=== PATIENT | male | born 1945 | race Caucasian/White ===

== ENCOUNTER 2018-07-07 19:06 | Inpatient (IN) | payer MEDICARE, MEDICAID ==
[~2018-07-07] VITALS: Ht 172.7 cm; Wt 51.3 kg
[2018-07-07] MEDS ORDERED: ATEN50TA PO (22:10)
[2018-07-07] MEDS ORDERED: IOHEXOL 100 ML ONE (22:25)
[2018-07-07] MEDS ORDERED: SOD CHLORIDE 0.9% 100 ML ONE (22:25)
[2018-07-07] MEDS ORDERED: morphine 4 MG/ML VIAL IV STA (23:37)
[2018-07-07] MEDS ORDERED: ONDANSETRON 4 MG INJ IV STA (23:37)
[2018-07-08] VITALS (9 sets, daily range): BP systolic 139–184; BP diastolic 83–96; PULSE 65–90; RESP 18–20; Ht 172.7 cm; Wt 51.3 kg
[2018-07-08] MEDS ORDERED: ASPIRIN 325 MG TAB PO ONE
--- NOTE | 2018-07-08 01:49 | ERD ---
ER Documentation Chief Complaint Chief Complaint dizziness/hearing, vision problem x 3 days HPI This is a 72-year-old male who presents for evaluation of intermittent blurry vision, as well as dizziness, described as vertiginous over the last 3 days. His symptoms are worsened by movement, he has not had a fever, he has no history of trauma. He has not had any dysarthria dysphasia, there are no relieving factors. The patient has no history of stroke. ROS All systems reviewed and are negative except as per history of present illness. Medications Home Meds Reported Medications Atenolol* (Atenolol*) 50 Mg Tablet, 50 MG PO BID, #60 TAB 07/07/18 Allergies Allergies: Coded Allergies: No Known Drug Allergies (Verified Allergy, Unknown, 07/07/18) PMhx/Soc History of Surgery: Yes (L Inguinal Hernia Repair) Anesthesia Reaction: No Hx Neurological Disorder: No Hx Respiratory Disorders: No Hx Cardiac Disorders: Yes (HTN) Hx Psychiatric Problems: No Hx Miscellaneous Medical Probl: No Hx Alcohol Use: Yes (Social) Hx Substance Use: Yes (Marijuana smoking) Hx Tobacco Use: Yes (3 sticks/day) Smoking Status: Current every day smoker Physical Exam Vitals Vital Signs Date Temp Pulse Resp B/P (MAP) Pulse Ox O2 O2 Flow FiO2 Time Delivery Rate 07/07/18 97.3 72 18 148/81 99 Room Air 21:00 (103) 07/07/18 97.2 87 18 156/89 97 19:18 (111) Physical Exam Const: No acute distress Head: Atraumatic Eyes: Normal Conjunctiva ENT: Normal External Ears, Nose and Mouth. Neck: Full range of motion. No meningismus. Resp: Clear to auscultation bilaterally Cardio: Regular rate and rhythm, no murmurs Abd: Soft, non tender, non distended. Normal bowel sounds Skin: No petechiae or rashes Back: No midline or flank tenderness Ext: No cyanosis, or edema Neur: Awake and alert, cranial nerves II through XII intact, normal [id number], normal rapid hand movement Psych: Normal Mood and Affect Result Diagram: 07/08/18 0533 07/08/18 0533 Results 24 hrs Laboratory Tests Test 07/07/18 21:00 07/07/18 21:01 Prothrombin Time 12.3 Sec Prothrombin Time Ratio 1.0 INR International Normalized Ratio 0.90 Activated Partial Thromboplast Time 30.5 Sec Sodium Level 144 mmol/L Potassium Level 3.2 mmol/L Chloride Level 108 mmol/L Carbon Dioxide Level 30 mmol/L Anion Gap 6 Blood Urea Nitrogen 15 mg/dl Creatinine 0.72 mg/dl Est Glomerular Filtrat Rate mL/min > 60 mL/min Glucose Level 112 mg/dl Calcium Level 8.9 mg/dl Total Bilirubin 0.3 mg/dl Direct Bilirubin 0.00 mg/dl Indirect Bilirubin 0.3 mg/dl Aspartate Amino Transf (AST/SGOT) 23 IU/L Alanine Aminotransferase (ALT/SGPT) 20 IU/L Alkaline Phosphatase 79 IU/L Troponin I < 0.012 ng/ml Total Protein 6.6 g/dl Albumin 3.8 g/dl Globulin 2.80 g/dl Albumin/Globulin Ratio 1.35 White Blood Count 5.2 10^3/ul Red Blood Count 4.68 10^6/ul Hemoglobin 15.1 g/dl Hematocrit 45.0 % Mean Corpuscular Volume 96.2 fl Mean Corpuscular Hemoglobin 32.3 pg Mean Corpuscular Hemoglobin Concent 33.6 g/dl Red Cell Distribution Width 12.8 % Platelet Count 168 10^3/UL Mean Platelet Volume 9.6 fl Immature Granulocytes % 0.200 % Neutrophils % 62.0 % Lymphocytes % 24.4 % Monocytes % 10.5 % Eosinophils % 2.3 % Basophils % 0.6 % Nucleated Red Blood Cells % 0.0 /100WBC Immature Granulocytes # 0.010 10^3/ul Neutrophils # 3.2 10^3/ul Lymphocytes # 1.3 10^3/ul Monocytes # 0.5 10^3/ul Eosinophils # 0.1 10^3/ul Basophils # 0.0 10^3/ul Nucleated Red Blood Cells # 0.0 10^3/ul Current Medications Medications Dose Sig/Jigar Start Time Status Last (Trade) Ordered Route PRN Stop Time Admin Dose Reason Admin IV Flush 10 ml STK-MED 07/07/18 DC 07/07/18 (NS 10 ml) ONCE .ROUTE 22:25 07/07/18 22:51 22:26 Sodium 100 ml @ ud STK-MED 07/07/18 DC 07/07/18 Chloride ONCE .ROUTE 22:25 07/07/18 22:51 22:26 Iohexol 100 ml @ ud STK-MED 07/07/18 DC 07/07/18 ONCE .ROUTE 22:25 07/07/18 22:51 22:26 Procedures/MDM 72-year-old male presents for evaluation of dizziness, symptoms have been ongoing for 3 days now. The patient had no neuro deficits on exam, however given the combination of vision changes associated with vertigo, I was concerned about a central cause for his dizziness. Thus a CT Noncon was ordered which showed acute and subacute strokes bilaterally. Symptoms have been ongoing for 3 days, and been waxing and waning, thus patient would not be a candidate for TPA based on timing, CT brain was followed up with a CTA, which showed severe stenosis of the cervical arteries, patient will require admission, for further work-up. He was given aspirin in the ED. Critical Care Time: 35 minutes Treatments/Evaluations: Close monitoring and treatment of unstable vital signs, cardiorespiratory, and neurologic status, while maintaining tight balance of fluid, respiratory, and cardiac interventions. This time includes discussing the case with the patient and the patient's family. This time does not include all procedures stated elsewhere in this record. This time also includes reviewing old records, labs and radiological studies. This time includes examining and re- examining the patient. Additionally, this time also includes arranging care with admitting and consulting physicians. EKG: Rate/Rhythm: Normal Sinus Rhythm QRS, ST, T-waves: No changes consistent w/ acute ischemia Impression: No evidence of ischemia or arrhythmia Departure Diagnosis: Primary Impression: CVA (cerebral vascular accident) CVA mechanism: unspecified Qualified Codes: I63.9 - Cerebral infarction, unspecified Condition: Serious ANGEL LUIS CLEARY MD July 08, 2018 01:49
[2018-07-08] MEDS ORDERED: ALBUTEROL/IPRATROPIUM (NEB) 3 ML AMP HHN PRN (02:30)
[2018-07-08] MEDS ORDERED: NACL 0.9% 3 ML SYG IV SCH (02:30)
[2018-07-08] MEDS ORDERED: ONDANSETRON 4 MG INJ IV PRN (02:30)
[2018-07-08] MEDS ORDERED: morphine 4 MG/ML VIAL IV ONE (03:44)
[2018-07-08] MEDS: POTASSIUM CHLORIDE 50 ML IVPB SCH ×2 (04:48→05:30)
[2018-07-08] MEDS: hydrALAzine 20 MG INJ IV PRN (04:48)
[2018-07-08] MEDS: POTASSIUM CHLORIDE 30 MEQ in SOD CHLORIDE 0.9% 1,000 ML IV ONE ×2 (06:00→09:57)
--- NOTE | 2018-07-08 07:02 | HP ---
Date/Time of Note Date/Time of Note DATE: 07/08/18 TIME: 06:59 Assessment/Plan VTE Prophylaxis Pharmacological prophylaxis: heparin Lines/Catheters IV C[facility]ter Type [facility]from [facility]): Saline Lock Assessment/Plan Assessment/Plan 1. Acute on chronic CVA -CT head shows acute and old infarcts. CT angiogram of the head and neck shows severe stenosis of the right ICA and right vertebral artery. -Neurology consult -Aspirin, statin -Check A1c, fasting lipid in a.m. -PT and speech/swallow eval -MRI of the brain 2. Hypertension: Symptom onset 3 days ago and as such no need for permissive hypertension. Continue home meds. Adjust as needed Result Diagram: 07/08/18 0533 07/07/18 2100 Results 24hrs Laboratory Tests Test 07/07/18 21:00 07/07/18 21:01 07/08/18 05:33 Prothrombin Time 12.3 Prothrombin Time Ratio 1.0 INR International Normalized Ratio 0.90 Activated Partial Thromboplast Time 30.5 Sodium Level 144 Potassium Level 3.2 L Chloride Level 108 Carbon Dioxide Level 30 Anion Gap 6 Blood Urea Nitrogen 15 Creatinine 0.72 Est Glomerular Filtrat Rate mL/min > 60 Glucose Level 112 Calcium Level 8.9 Total Bilirubin 0.3 Direct Bilirubin 0.00 Indirect Bilirubin 0.3 Aspartate Amino Transf (AST/SGOT) 23 Alanine Aminotransferase (ALT/SGPT) 20 Alkaline Phosphatase 79 Troponin I < 0.012 Pending Total Protein 6.6 Albumin 3.8 Globulin 2.80 Albumin/Globulin Ratio 1.35 White Blood Count 5.2 5.5 Red Blood Count 4.68 L 5.07 Hemoglobin 15.1 16.4 Hematocrit 45.0 48.3 Mean Corpuscular Volume 96.2 95.3 Mean Corpuscular Hemoglobin 32.3 32.3 Mean Corpuscular Hemoglobin Concent 33.6 34.0 Red Cell Distribution Width 12.8 12.8 Platelet Count 168 172 Mean Platelet Volume 9.6 9.8 Immature Granulocytes % 0.200 0.400 Neutrophils % 62.0 48.8 Lymphocytes % 24.4 35.0 Monocytes % 10.5 10.8 Eosinophils % 2.3 4.3 Basophils % 0.6 0.7 Nucleated Red Blood Cells % 0.0 0.0 Immature Granulocytes # 0.010 0.020 Neutrophils # 3.2 2.7 Lymphocytes # 1.3 1.9 Monocytes # 0.5 0.6 Eosinophils # 0.1 0.2 Basophils # 0.0 0.0 Nucleated Red Blood Cells # 0.0 0.0 Creatine Kinase 49 Creatine Kinase Index Pending Creatinine Kinase MB (Mass) Pending HPI/ROS Admit Date/Time Admit Date/Time July 07, 2018 at 22:39 Hx of Present Illness This is a 9-year-old male with a history of hypertension who presented to the ER complaining of weakness, visual disturbance, forgetfulness and slurred speech for the past 3 days. In the ER, he is found to have acute and old infarct on head CT. CT angiogram shows severe stenosis of right ICA and the right vertebral artery as well as mild on the left ICA and left vertebral artery. Initial blood pressure 156/89. Labs shows a potassium of 3.2 otherwise basic labs within acceptable range. PMH/Family/Social Past Medical History Past Surgical Hx: other (see hpi) Family History Significant Family History: no pertinent family hx Social History Alcohol Use: none Smoking Status: Never smoker Drug Use: none Exam Exam Constitutional: other (No acute distress) Head: normocephalic, atraumatic Eyes: EOMI, PERRL Respiratory: other (no wheezing or Rhonchi) Cardiovascular: normal pulse Gastrointestinal: soft, non-tender Extremities: normal pulses Medications Current Medications IV Flush (NS 3 ml) 3 ml PER PROTOCOL IV ; Start 07/08/18 at 02:30 Ondansetron HCl (Zofran Inj) 4 mg Q6H PRN IV NAUSEA/VOMITING; Start 07/08/18 at 02:30 Aspirin (Aspirin) 81 mg DAILY PO ; Start 07/08/18 at 09:00 Acetaminophen (Tylenol Tab) 650 mg Q6H PRN PO .PAIN 1-3 OR TEMP; Start 07/08/18 at 02:30 Heparin Sodium (Porcine) (Heparin (5000 Units/1ml)) 5,000 unit Q12 SC ; Start 07/08/18 at 09:00 Albuterol/ Ipratropium (Duoneb) 3 ml Q2H RESP THERAPY PRN HHN SHORTNESS OF BREATH; Start 07/08/18 at 02:30 Atenolol (Tenormin) 50 mg BID PO ; Start 07/08/18 at 09:00 Atorvastatin Calcium (Lipitor) 40 mg QHS PO ; Start 07/08/18 at 21:00 Hydralazine HCl (Apresoline) 10 mg Q6H PRN IV ELEVATED SYSTOLIC BP Last administered on 07/08/18at 04:48; Admin Dose 10 MG; Start 07/08/18 at 04:30 Potassium Chloride 30 meq/ Sodium Chloride 1,015 ml @ 333.3 mls/ hr Q3H3M ONCE IV ; Start 07/08/18 at 06:00; Stop 07/08/18 at 09:02 Coded Allergies: No Known Drug Allergies (Verified Allergy, Unknown, 07/07/18) Social History Smoking Status: Current every day smoker Exam/Review of Systems Vital Signs Vitals Vital Signs Date Temp Pulse Resp B/P (MAP) Pulse Ox O2 O2 Flow FiO2 Time Delivery Rate 07/08/18 65 04:16 07/08/18 97.8 18 184/96 95 Room Air 04:14 (125) Intake and Output 07/07/18 07/07/18 07/08/18 1515:00 23:00 07:00 IntakeIntake Total 200 ml OutputOutput Total 300 ml BalanceBalance -100 ml SAI CARLISLE MD July 08, 2018 07:02
[2018-07-08] MEDS: ATENOLOL 50 MG TAB PO SCH ×2 (09:56→22:12)
[2018-07-08] MEDS: ASPIRIN 81 MG TAB PO SCH (09:56)
[2018-07-08] MEDS: HEPARIN 5,000 UNIT/1 ML VIAL SC SCH ×2 (10:00→22:52)
[2018-07-08] MEDS: ACETAMINOPHEN 325 MG TAB PO PRN ×2 (10:20→16:36)
--- NOTE | 2018-07-08 12:14 | PN ---
Date/Time of Note Date/Time of Note DATE: 07/08/18 TIME: 12:07 Assessment/Plan VTE Prophylaxis Risk score (from Ns)>0 risk: 3 SCD applied (from Ns): Yes Pharmacological prophylaxis: heparin Lines/Catheters IV [facility] Saline Lock Assessment/Plan Hospital Course 72-year-old male who had presented to the emergency room with dizziness and vision problems for the last 3 days, he was worked up with code stroke was found to have the followin. Acute on chronic multiple CVA seen on CT of the brain involving bilateral occipital lobes and chronic strokes in bilateral cerebellar lobes and frontal and temporal regions. 2. Carotid artery disease -Neck CTA showed severe focal narrowing right proximal cervical ICA as well as narrowing in the intracranial right vertebral artery. 3. Dyslipidemia with hypertriglyceridemia 4. Chronic hypertension -We will titrate meds for optimal control. Patient is out of window for permissive hypertension. Plan: Continue telemetry monitoring for arrhythmias, follow-up 2D echo study with bubble study Await neurology review and recommendations Continue high-dose statin Vascular surgery for carotid artery stenosis Physical therapy evaluation Further interventions per clinical course. Result Diagram: 07/08/18 0533 07/08/18 0533 Results 24hrs Laboratory Tests Test 07/07/18 21:00 07/07/18 21:01 07/08/18 05:33 Prothrombin Time 12.3 Prothrombin Time Ratio 1.0 INR International Normalized Ratio 0.90 Activated Partial Thromboplast Time 30.5 Sodium Level 144 145 H Potassium Level 3.2 L 3.5 Chloride Level 108 109 Carbon Dioxide Level 30 27 Anion Gap 6 9 Blood Urea Nitrogen 15 13 Creatinine 0.72 0.62 Est Glomerular Filtrat Rate mL/min > 60 > 60 Glucose Level 112 73 Calcium Level 8.9 9.1 Total Bilirubin 0.3 0.5 Direct Bilirubin 0.00 0.00 Indirect Bilirubin 0.3 0.5 Aspartate Amino Transf (AST/SGOT) 23 32 Alanine Aminotransferase (ALT/SGPT) 20 17 Alkaline Phosphatase 79 72 Troponin I < 0.012 < 0.012 Total Protein 6.6 6.7 Albumin 3.8 4.1 Globulin 2.80 2.60 Albumin/Globulin Ratio 1.35 1.57 White Blood Count 5.2 5.5 Red Blood Count 4.68 L 5.07 Hemoglobin 15.1 16.4 Hematocrit 45.0 48.3 Mean Corpuscular Volume 96.2 95.3 Mean Corpuscular Hemoglobin 32.3 32.3 Mean Corpuscular Hemoglobin Concent 33.6 34.0 Red Cell Distribution Width 12.8 12.8 Platelet Count 168 172 Mean Platelet Volume 9.6 9.8 Immature Granulocytes % 0.200 0.400 Neutrophils % 62.0 48.8 Lymphocytes % 24.4 35.0 Monocytes % 10.5 10.8 Eosinophils % 2.3 4.3 Basophils % 0.6 0.7 Nucleated Red Blood Cells % 0.0 0.0 Immature Granulocytes # 0.010 0.020 Neutrophils # 3.2 2.7 Lymphocytes # 1.3 1.9 Monocytes # 0.5 0.6 Eosinophils # 0.1 0.2 Basophils # 0.0 0.0 Nucleated Red Blood Cells # 0.0 0.0 Hemoglobin A1c 5.3 Magnesium Level 1.7 Creatine Kinase 49 Creatine Kinase Index 2.9 Creatinine Kinase MB (Mass) 1.42 Triglycerides Level 200 H Cholesterol Level 205 H LDL Cholesterol, Calculated 124 HDL Cholesterol 41 Cholesterol/HDL Ratio 5.0 Exam/Review of Systems Exam Vitals Vital Signs Date Temp Pulse Resp B/P (MAP) Pulse Ox O2 O2 Flow FiO2 Time Delivery Rate 07/08/18 98.8 18 143/83 96 Room Air 11:36 (103) 07/08/18 87 09:41 Intake and Output 07/07/18 07/07/18 07/08/18 1515:00 23:00 07:00 IntakeIntake Total 200 ml OutputOutput Total 300 ml BalanceBalance -100 ml Results Results 24hrs Laboratory Tests Test 07/07/18 21:00 07/07/18 21:01 07/08/18 05:33 Prothrombin Time 12.3 Prothrombin Time Ratio 1.0 INR International Normalized Ratio 0.90 Activated Partial Thromboplast Time 30.5 Sodium Level 144 145 H Potassium Level 3.2 L 3.5 Chloride Level 108 109 Carbon Dioxide Level 30 27 Anion Gap 6 9 Blood Urea Nitrogen 15 13 Creatinine 0.72 0.62 Est Glomerular Filtrat Rate mL/min > 60 > 60 Glucose Level 112 73 Calcium Level 8.9 9.1 Total Bilirubin 0.3 0.5 Direct Bilirubin 0.00 0.00 Indirect Bilirubin 0.3 0.5 Aspartate Amino Transf (AST/SGOT) 23 32 Alanine Aminotransferase (ALT/SGPT) 20 17 Alkaline Phosphatase 79 72 Troponin I < 0.012 < 0.012 Total Protein 6.6 6.7 Albumin 3.8 4.1 Globulin 2.80 2.60 Albumin/Globulin Ratio 1.35 1.57 White Blood Count 5.2 5.5 Red Blood Count 4.68 L 5.07 Hemoglobin 15.1 16.4 Hematocrit 45.0 48.3 Mean Corpuscular Volume 96.2 95.3 Mean Corpuscular Hemoglobin 32.3 32.3 Mean Corpuscular Hemoglobin Concent 33.6 34.0 Red Cell Distribution Width 12.8 12.8 Platelet Count 168 172 Mean Platelet Volume 9.6 9.8 Immature Granulocytes % 0.200 0.400 Neutrophils % 62.0 48.8 Lymphocytes % 24.4 35.0 Monocytes % 10.5 10.8 Eosinophils % 2.3 4.3 Basophils % 0.6 0.7 Nucleated Red Blood Cells % 0.0 0.0 Immature Granulocytes # 0.010 0.020 Neutrophils # 3.2 2.7 Lymphocytes # 1.3 1.9 Monocytes # 0.5 0.6 Eosinophils # 0.1 0.2 Basophils # 0.0 0.0 Nucleated Red Blood Cells # 0.0 0.0 Hemoglobin A1c 5.3 Magnesium Level 1.7 Creatine Kinase 49 Creatine Kinase Index 2.9 Creatinine Kinase MB (Mass) 1.42 Triglycerides Level 200 H Cholesterol Level 205 H LDL Cholesterol, Calculated 124 HDL Cholesterol 41 Cholesterol/HDL Ratio 5.0 Medications Medication Current Medications IV Flush (NS 3 ml) 3 ml PER PROTOCOL IV ; Start 07/08/18 at 02:30 Ondansetron HCl (Zofran Inj) 4 mg Q6H PRN IV NAUSEA/VOMITING; Start 07/08/18 at 02:30 Aspirin (Aspirin) 81 mg DAILY PO Last administered on 07/08/18at 09:56; Admin Dose 81 MG; Start 07/08/18 at 09:00 Acetaminophen (Tylenol Tab) 650 mg Q6H PRN PO .PAIN 1-3 OR TEMP Last admin istered on 07/08/18at 10:20; Admin Dose 650 MG; Start 07/08/18 at 02:30 Heparin Sodium (Porcine) (Heparin (5000 Units/1ml)) 5,000 unit Q12 SC Last administered on 07/08/18at 10:00; Admin Dose 5,000 UNIT; Start 07/08/18 at 09:00 Albuterol/ Ipratropium (Duoneb) 3 ml Q2H RESP THERAPY PRN HHN SHORTNESS OF BREATH; Start 07/08/18 at 02:30 Atenolol (Tenormin) 50 mg BID PO Last administered on 07/08/18at 09:56; Admin Dose 50 MG; Start 07/08/18 at 09:00 Atorvastatin Calcium (Lipitor) 40 mg QHS PO ; Start 07/08/18 at 21:00 Hydralazine HCl (Apresoline) 10 mg Q6H PRN IV ELEVATED SYSTOLIC BP Last administered on 07/08/18at 04:48; Admin Dose 10 MG; Start 07/08/18 at 04:30 SUSANNAH LEACH July 08, 2018 12:14
--- NOTE | 2018-07-08 16:53 | CONS ---
Assessment/Plan Assessment/Plan Hospital Course 72 yo M with hx of HTN who presents for evaluation of weakness, vision changes, dysarthria and other sx. His HCT was notable for multiple infarcts of indeterminate age.. for which neurology is consulted. CTA H/N is most notable for severe focal stenosis of the R proximal cervical ICA and R vertebral artery Echo is unrevealing. LDL 124 P: Await MRI brain for further characterization ASA/Lipitor for secondary stroke prevention Add ESR, RPR, UDS Cont BP and other medical management per primary PT/OT/ST as necessary Will follow clinically, to recommend neurologic studies, as necessary Consultation Date/Type/Reason Admit Date/Time July 07, 2018 at 22:39 Type of Consult Neurology Requesting Provider: SUSANNAH LEACH Date/Time of Note DATE: 07/08/18 TIME: 16:53 Hx of Present Illness 72 yo M with hx of HTN who presented to the ED with complaints of weakness, blurred vision, dysarthria and forgetfulness x 3 days. History was obtained from pt and chart review. He currently has complaints of headache and dizziness. It is additionally elsewhere noted: Hx of Present Illness This is a 72-year-old male with a history of hypertension who presented to the E R complaining of weakness, visual disturbance, forgetfulness and slurred speech for the past 3 days. In the ER, he is found to have acute and old infarct on head CT. CT angiogram shows severe stenosis of right ICA and the right vertebral artery as well as mild on the left ICA and left vertebral artery. Initial blood pressure 156/89. Labs shows a potassium of 3.2 otherwise basic labs within acceptable range. negative unless noted otherwise in HPI Exam/Review of Systems Exam Vitals Vital Signs Date Temp Pulse Resp B/P (MAP) Pulse Ox O2 O2 Flow FiO2 Time Delivery Rate 07/08/18 67 16:30 07/08/18 154/87 16:30 (109) 07/08/18 98.3 18 93 Room Air 15:56 Intake and Output 07/07/18 07/07/18 07/08/18 1515:00 23:00 07:00 IntakeIntake Total 200 ml OutputOutput Total 300 ml BalanceBalance -100 ml Exam PE: Gen Appearance: No Apparent Distress HEENT: Normocephalic Cardiovascular: Regular rate Abdomen: Soft Extremities: Dry NE: The patient was alert and oriented.. Language was normal. Fund of knowledge was normal. Pupils were equal and reactive to light. There was no afferent pupillary defect. Visual wang were normal. Funduscopic examination was limited. Extra-ocular movements were full. Ptosis was absent. There was no nystagmus. Facial sensation was normal. Face was symmetric with normal strength. Hearing was intact. Palate movements were normal. Neck strength was normal. There was normal tongue bulk and speed of movement. Tone was normal. Muscle bulk was normal. I did not see fasciculations. Arms and legs were strong. Vibration sensation was normal. Temperature and pinprick sensation was normal. Rapid alternating movements were normal. There was no dysmetria. There was no intention tremor. Gait was unsteady. Arm and leg reflexes were 2+ and symmetric. Smith's sign was absent. Plantar responses were flexor. Results Result Diagram: 07/08/18 0533 07/08/18 0533 Results 24hrs Laboratory Tests Test 07/07/18 21:00 07/07/18 21:01 07/08/18 05:33 07/08/18 11:17 Prothrombin Time 12.3 Prothrombin Time Ratio 1.0 INR International 0.90 Normalized Ratio Activated 30.5 Partial Thromboplast Time Sodium Level 144 145 H Potassium Level 3.2 L 3.5 Chloride Level 108 109 Carbon Dioxide Level 30 27 Anion Gap 6 9 Blood Urea Nitrogen 15 13 Creatinine 0.72 0.62 Est Glomerular Filtrat > 60 > 60 Rate mL/min Glucose Level 112 73 Calcium Level 8.9 9.1 Total Bilirubin 0.3 0.5 Direct Bilirubin 0.00 0.00 Indirect Bilirubin 0.3 0.5 Aspartate Amino 23 32 Transf (AST/SGOT) Alanine 20 17 Aminotransferase (ALT/SG PT) Alkaline Phosphatase 79 72 Troponin I < 0.012 < 0.012 < 0.012 Total Protein 6.6 6.7 Albumin 3.8 4.1 Globulin 2.80 2.60 Albumin/Globulin Ratio 1.35 1.57 White Blood Count 5.2 5.5 Red Blood Count 4.68 L 5.07 Hemoglobin 15.1 16.4 Hematocrit 45.0 48.3 Mean Corpuscular Volume 96.2 95.3 Mean Corpuscular 32.3 32.3 Hemoglobin Mean Corpuscular 33.6 34.0 Hemoglobin Concent Red Cell Distribution 12.8 12.8 Width Platelet Count 168 172 Mean Platelet Volume 9.6 9.8 Immature Granulocytes % 0.200 0.400 Neutrophils % 62.0 48.8 Lymphocytes % 24.4 35.0 Monocytes % 10.5 10.8 Eosinophils % 2.3 4.3 Basophils % 0.6 0.7 Nucleated Red Blood 0.0 0.0 Cells % Immature Granulocytes # 0.010 0.020 Neutrophils # 3.2 2.7 Lymphocytes # 1.3 1.9 Monocytes # 0.5 0.6 Eosinophils # 0.1 0.2 Basophils # 0.0 0.0 Nucleated Red Blood 0.0 0.0 Cells # Hemoglobin A1c 5.3 Magnesium Level 1.7 Creatine Kinase 49 38 Creatine Kinase Index 2.9 3.3 Creatinine Kinase MB 1.42 1.25 (Mass) Triglycerides Level 200 H Cholesterol Level 205 H LDL Cholesterol, 124 Calculated HDL Cholesterol 41 Cholesterol/HDL Ratio 5.0 Medications Medication Current Medications IV Flush (NS 3 ml) 3 ml PER PROTOCOL IV ; Start 07/08/18 at 02:30 Ondansetron HCl (Zofran Inj) 4 mg Q6H PRN IV NAUSEA/VOMITING; Start 07/08/18 at 02:30 Aspirin (Aspirin) 81 mg DAILY PO Last administered on 07/08/18 09:56; Admin Dose 81 MG; Start 07/08/18 at 09:00 Acetaminophen (Tylenol Tab) 650 mg Q6H PRN PO .PAIN 1-3 OR TEMP Last adm inistered on 07/08/18at 16:36; Admin Dose 650 MG; Start 07/08/18 at 02:30 Heparin Sodium (Porcine) (Heparin (5000 Units/1ml)) 5,000 unit Q12 SC Last administered on 07/08/18at 10:00; Admin Dose 5,000 UNIT; Start 07/08/18 at 09:00 Albuterol/ Ipratropium (Duoneb) 3 ml Q2H RESP THERAPY PRN HHN SHORTNESS OF BREATH; Start 07/08/18 at 02:30 Atenolol (Tenormin) 50 mg BID PO Last administered on 07/08/18 09:56; Admin Dose 50 MG; Start 07/08/18 at 09:00 Hydralazine HCl (Apresoline) 10 mg Q6H PRN IV ELEVATED SYSTOLIC BP Last administered on 07/08/18 04:48; Admin Dose 10 MG; Start 07/08/18 at 04:30 Atorvastatin Calcium (Lipitor) 80 mg QHS PO ; Start 07/08/18 at 21:00 Past Medical History reviewed Home Meds Reported Medications Atenolol* (Atenolol*) 50 Mg Tablet, 50 MG PO BID, #60 TAB 07/07/18 Medications Current Medications IV Flush (NS 3 ml) 3 ml PER PROTOCOL IV ; Start 07/08/18 at 02:30 Ondansetron HCl (Zofran Inj) 4 mg Q6H PRN IV NAUSEA/VOMITING; Start 07/08/18 at 02:30 Aspirin (Aspirin) 81 mg DAILY PO Last administered on 07/08/18at 09:56; Admin Dose 81 MG; Start 07/08/18 at 09:00 Acetaminophen (Tylenol Tab) 650 mg Q6H PRN PO .PAIN 1-3 OR TEMP Last administered on 07/08/18 16:36; Admin Dose 650 MG; Start 07/08/18 at 02:30 Heparin Sodium (Porcine) (Heparin (5000 Units/1ml)) 5,000 unit Q12 SC Last administered on 07/08/18at 10:00; Admin Dose 5,000 UNIT; Start 07/08/18 at 09:00 Albuterol/ Ipratropium (Duoneb) 3 ml Q2H RESP THERAPY PRN HHN SHORTNESS OF BREATH; Start 07/08/18 at 02:30 Atenolol (Tenormin) 50 mg BID PO Last administered on 07/08/18at 09:56; Admin Dose 50 MG; Start 07/08/18 at 09:00 Hydralazine HCl (Apresoline) 10 mg Q6H PRN IV ELEVATED SYSTOLIC BP Last administered on 07/08/18at 04:48; Admin Dose 10 MG; Start 07/08/18 at 04:30 Atorvastatin Calcium (Lipitor) 80 mg QHS PO ; Start 07/08/18 at 21:00 Allergies: Coded Allergies: No Known Drug Allergies (Verified Allergy, Unknown, 07/07/18) Past Surgical History reviewed Social History reviewed Smoking Status: Current every day smoker HUDSON LOVE NP July 08, 2018 16:53
--- NOTE | 2018-07-08 19:03 | RADRPT ---
Echocardiogram Report Patient Name: ILYA BARLOWPatient ID: [id number] : 1945 (72y 11m)Study Date: 07/08/2018 1:16:34 PM Gender: MAccession #: [id number] Tech: Chayo Spain RDCS Location: 525 Ref.Physician: SUSANNAH LEACH Height(Cm): BSA: Weight(Kg): Quality: AdequateAccount #: Procedures: Echocardiographic Report: Transthoracic echocardiogram with complete 2D, M-Mode, and doppler examination. Indications: Acute Cerebrovascular Accident. Measurements: 2D/M Mode Doppler Measurement Value Normal Range Measurement Value Normal Range LVIDd 2D 3.2 [ 4.2 - 5.8 ] cm AV Peak Dax 1.2 [ 100.0 - 170.0 ] cm/sec LVIDs 2D 2.5 [ 2.5 - 4.0 ] cm AV Peak PG 6.0 [ 2.0 - 9.0 ] mmHg LVPWd 2D 1.1 [ 0.6 - 1.0 ] cm LVOT Peak Dax 1.1 [ 70.0 - 110.0 ] cm/sec IVSd 2D 1.1 [ 0.6 - 1.0 ] cm LVOT Peak PG 5.0 [ 2.0 - 6.0 ] mmHg AoR Diam 2D 3.3 [ 2.6 - 3.4 ] cm MV E Peak Dax 0.5 [ 60.0 - 130.0 ] cm/sec EDV 2D 41.6 [ 62.0 - 150.0 ] ml MV A Peak Dax 0.7 [ 100.0 - 120.0 ] cm/sec ESV 2D 21.2 [ 21.0 - 61.0 ] ml MV E/A 0.7 [ 0.8 - 1.5 ] ratio EF 2D 49.0 [ 52.0 - 72.0 ] percent MV Decel Time 194 [ 104 - 258 ] msec LA Dimen 2D 2.8 [ 3.0 - 4.0 ] cm Lat E` Dax 0.1 [ 10.0 - 15.0 ] cm/sec Lateral E/E` 6.2 [ 1.0 - 2.0 ] ratio MV E/A 0.7 [ 0.8 - 1.5 ] ratio TR Peak Dax 2.5 [ 100.0 - 280.0 ] cm/sec TR Peak PG 26.0 mmHg RVSP 29.0 [ 10.0 - 36.0 ] mmHg RA Pressure 3.0 mmHg Findings: Left Ventricle: Normal left ventricular systolic function. Normal left ventricular cavity size. Mild concentric left ventricular hypertrophy. Ejection fraction is visually estimated at 65 %. Tissue Doppler/Mitral Doppler indices are consistent with impaired relaxation (Stage I diastolic dysfunction). Right Ventricle: Normal right ventricular size. Normal right ventricular systolic function. Left Atrium: The left atrium is normal in size. Right Atrium: The right atrium is normal in size. Atrial Septum: Bubble study was performed with and with out valsalva indicating no evidence of intra atrial shunt. Mitral Valve: Normal appearance and function of the mitral valve with trace physiologic regurgitation. Aortic Valve: No significant aortic stenosis or insufficiency. Aortic cusps appear mildly calcified. Tricuspid Valve: Normal appearance of the tricuspid valve. Estimated peak PA systolic pressure 29 mmHg. There is trace tricuspid regurgitation. Pulmonic Valve: Normal pulmonic valve appearance. Pericardium: Normal pericardium with no significant pericardial effusion. Aorta: Normal aortic root. IVC: Normal size and normal respiratory collapse consistent with normal right atrial pressure. Conclusions: Normal left ventricular systolic function. Normal left ventricular cavity size. Mild concentric left ventricular hypertrophy. Ejection fraction is visually estimated at 65 %. Tissue Doppler/Mitral Doppler indices are consistent with impaired relaxation (Stage I diastolic dysfunction). Normal right ventricular size. Normal right ventricular systolic function. The left atrium is normal in size. The right atrium is normal in size. No significant valvular stenosis or regurgitation seen. Normal pericardium with no significant pericardial effusion. Bubble study was performed with and with out valsalva indicating no evidence of intra atrial shunt. Electronically Signed By: Yoni Hartman 2018-07-08 19:02:32 PDT
[2018-07-08] MEDS ORDERED: ATORVASTATIN 40 MG TAB PO SCH ×2 (21:00)
[2018-07-08] MEDS ORDERED: ZOLPIDEM 5 MG TAB PO PRN (22:00)
[2018-07-09] VITALS: BP 163/100; PULSE 70; PULSE 81; RESP 18
[2018-07-09] MEDS: hydrALAzine 20 MG INJ IV PRN (00:30)
[2018-07-09] MEDS: ACETAMINOPHEN 325 MG TAB PO PRN (01:04)
[2018-07-09 04:00] VITALS: BP 155/97; PULSE 86; RESP 18
[2018-07-09 04:37] VITALS: PULSE 83
[2018-07-09] MEDS ORDERED: LORAZEPAM 2 MG INJ IV ONE (05:34)
[2018-07-09 07:41] VITALS: BP 121/73; PULSE 88; RESP 18
[2018-07-09 09:44] VITALS: PULSE 86
[2018-07-09] MEDS: ATENOLOL 50 MG TAB PO SCH (09:52)
[2018-07-09] MEDS: ASPIRIN 81 MG TAB PO SCH (09:53)
[2018-07-09] MEDS ORDERED: ASPI-831 PO (10:02)
[2018-07-09] MEDS ORDERED: ATOR-2 PO (10:02)
--- NOTE | 2018-07-09 10:03 | DS ---
Date/Time of Note Date/Time of Note DATE: 07/09/18 TIME: 10:02 Discharge Summary Admission/Discharge Info Admit Date/Time July 07, 2018 at 22:39 Discharge Date/Time Discharge Diagnosis 72-year-old male who had presented to the emergency room with dizziness and vision problems for the last 3 days, he was worked up with code stroke was found to have the followin. Acute on chronic multiple CVA seen on CT and MRI of the brain involving bilateral occipital lobes and chronic strokes in bilateral cerebellar lobes and frontal and temporal regions. 2. Carotid artery disease -Neck CTA showed severe focal narrowing right proximal cervical ICA as well as narrowing in the intracranial right vertebral artery. 3. Dyslipidemia with hypertriglyceridemia 4. Chronic hypertension . Patient Condition: Stable Hospital Course 72-year-old male who had presented to the emergency room with dizziness and vision problems for the last 3 days, he was worked up with code stroke was found to have the followin. Acute on chronic multiple CVA seen on CT of the brain involving bilateral occipital lobes and chronic strokes in bilateral cerebellar lobes and frontal and temporal regions, confirmed on MRI. 2. Carotid artery disease -Neck CTA showed severe focal narrowing right proximal cervical ICA as well as narrowing in the intracranial right vertebral artery. 3. Dyslipidemia with hypertriglyceridemia 4. Chronic hypertension -We will titrate meds for optimal control. Patient is out of window for permissive hypertension. I advised patient to stay for vascular surgery review but he declined stating he had to leave because his dog was in labor and was having babies. I advised him that he could have a massive stroke and possibly and still not be able to care for his dog if he didn't care for himself yet, but he verbalized understand ing and still insisted on leaving. He was given information for outpatient vascular surgical review and the need for urgent review was strongly stressed. I had patient repeat it back to ensure he understood. He was also insistent on being discharged prior to neurology review and clearance and prior to arrangement of possible home health for home physical therapy and home assessment. He has been advised that he can actually follow-up with his primary care doctor for this. I also advised him that we did check a TSH, but I can add this to the blood in lab and contact him if abnormal. Patient is wanting to leave right away. Overall he is stable for discharge, I have strongly recommended close outpatient follow-up with vasculr surgery, primary care and neurology. Patient also encouraged to quit tobacco use and abuse. I have endorsed strongly that this is the strongest risk factor in his condition for repeated strokes. Again he verbalized understanding. . Home Meds Active Scripts Aspirin (Aspirin) 81 Mg Chew, 81 MG PO DAILY, #30 TAB 2 Refills Prov:SUSANNAH LEACH. 07/09/18 Atorvastatin* (Atorvastatin*) 80 Mg Tablet, 80 MG PO QHS, #30 TAB 2 Refills Prov:SUSANNAH LEACH. 07/09/18 Reported Medications Atenolol* (Atenolol*) 50 Mg Tablet, 50 MG PO BID, #60 TAB 07/07/18 Follow-up Plan See hospital course . Primary Care Provider Care Physician No Primary Time spent on discharge: > 30 minutes Pending Labs Laboratory Tests Test 07/08/18 11:17 07/09/18 05:55 Creatine Kinase 38 IU/L (23-200) Creatine Kinase Index 3.3 Creatinine Kinase MB 1.25 ng/ml (0.0-2.4) (Mass) Troponin I < 0.012 ng/ml (0.000-0.120) White Blood Count 7.4 10^3/ul (4.8-10.8) Red Blood Count 4.83 10^6/ul (4.70-6.10) Hemoglobin 15.7 g/dl (14.0-18.0) Hematocrit 45.3 % (42.0-52.0) Mean Corpuscular Volume 93.8 fl (82.0-101.0) Mean Corpuscular 32.5 pg (29.0-33.0) Hemoglobin Mean Corpuscular 34.7 g/dl (32.0-37.0) Hemoglobin Concent Red Cell Distribution 12.4 % (11.5-14.5) Width Platelet Count 201 10^3/UL (140-415) Mean Platelet Volume 9.6 fl (7.4-10.4) Immature Granulocytes % 0.400 % (0.001-0.429) Neutrophils % 71.0 % (39.0-77.0) Lymphocytes % 16.2 % (15.0-51.0) Monocytes % 9.7 % (0.0-11.0) Eosinophils % 2.0 % (0.0-7.0) Basophils % 0.7 % (0.0-2.0) Nucleated Red Blood Cells 0.0 /100WBC (0.0-0.0) % Immature Granulocytes # 0.030 10^3/ul (0.0-0.031) Neutrophils # 5.3 10^3/ul (1.6-7.5) Lymphocytes # 1.2 10^3/ul (0.8-2.9) Monocytes # 0.7 10^3/ul (0.3-0.9) Eosinophils # 0.2 10^3/ul (0.0-0.5) Basophils # 0.1 10^3/ul (0.0-0.1) Nucleated Red Blood Cells 0.0 10^3/ul (0.0-0.0) # Erythrocyte Sedimentation 3.0 mm/Hr (0-20) Rate Sodium Level 142 mmol/L (135-144) Potassium Level 3.5 mmol/L (3.5-5.1) Chloride Level 109 mmol/L (97-110) Carbon Dioxide Level 26 mmol/L (21-31) Anion Gap 7 (5-13) Blood Urea Nitrogen 13 mg/dl (7-20) Creatinine 0.56 mg/dl (0.61-1.24) Est Glomerular Filtrat > 60 mL/min (>60) Rate mL/min Glucose Level 103 mg/dl (70-220) Calcium Level 9.2 mg/dl (8.4-10.2) Phosphorus Level 2.4 mg/dl (2.5-4.9) Magnesium Level 1.7 mg/dl (1.7-2.5) Urine Opiates Screen Positive (NEGATIVE) Urine Barbiturates Negative (NEGATIVE) Urine Amphetamines Screen Negative (NEGATIVE) Urine Benzodiazepines Negative (NEGATIVE) Screen Urine Cocaine Screen Negative (NEGATIVE) Urine Cannabinoids Positive (NEGATIVE) SUSANNAH LEACH July 09, 2018 10:03
--- NOTE | 2018-07-09 10:04 | PDOCDIS ---
Discharge Instructions CONDITION [id number] Patient Condition: [id number] Stable HOME CARE INSTRUCTIONS: [id number] Diet Instructions: [id number] Low Fat /Cholesterol ACTIVITY: [id number] Activity Restrictions: [id number] Slowly Increase Activity Rest between Activity FOLLOW UP/APPOINTMENTS Follow-up Plan Followup with your primary doctor within the next 1-2 weeks. If you don't have one please let someone know, we can give you resources that may help you pick one. You may call Dr Unruly Maldonado's office. he's accepting new patients Name, Degree: Unruly Maldonado MD Specialty: Internal Medicine Comments: Office Address: [address] [place] [address] [place] [id number] Office Office You may also call your insurance company to assign one to you. Review your medication list with your nurse before leaving and if you need new prescriptions please let your nurse know. I may have made changes to your home medications or given you new prescriptions, please let your primary doctor know as well. Stay compliant with your medications and report any side effects to your PCP or pharmacist. Return to the ER if you have any concerns and cannot reach your doctors or call your insurance company, they usually have a nurse that can help you. SUSANNAH LEACH July 09, 2018 10:04
[2018-07-09] MEDS: HEPARIN 5,000 UNIT/1 ML VIAL SC SCH (10:09)
== END 2018-07-09 10:20 | disposition home or self-care (01) | DRG 66 ==
LOC: E/R 19:06 → TEL 22:39
PROVIDERS: ADMIT Internal Medicine; ATTEND Family Medicine
DX: I63.9 Cerebral infarction, unspecified (principal); E78.5 Hyperlipidemia, unspecified; I10 Essential (primary) hypertension; I65.21 Occlusion and stenosis of right carotid artery; I65.01 Occlusion and stenosis of right vertebral artery; F17.210 Nicotine dependence, cigarettes, uncomplicated; Z86.73 Personal history of transient ischemic attack (TIA), and cerebral infarction without residual deficits
CPT/HCPCS: 36415; 70450; 70496; 70498; 70551; 80048; 80053; 80061; 80307; 82550; 82553; 83036; 83735; 84100; 84443; 84484; 85025; 85610; 85651; 85730; 86592; 87081; 92610; 93005; 93306; 97110; 97116; 97162; 97530; J0360; J1644; J2060; J2270; J2405; J3480; J7030; Q9967